=== PATIENT | male | born 1975 | race Caucasian/White ===

== ENCOUNTER 2017-05-23 15:01 | Emergency (ER) | payer MEDICAID ==
[~2017-05-23] VITALS: Ht 162.6 cm; Wt 54.4 kg
--- NOTE | 2017-05-23 16:04 | NUR ---
PATIENT ANMBULATED TO BED 3.
[2017-05-23 16:07] VITALS: BP 136/85
[2017-05-23] MEDS ORDERED: cefTRIAXone 1,000 MG in LIDOCAINE 1% ED 2.1 ML IM ONE (16:10)
--- NOTE | 2017-05-23 16:10 | NUR ---
41 YO MALE BIB SELF FOR DOG BITE TO LEFT HAND AND THUMB YESTERDAY. RED AND SWOLLEN NO DRAINAGE. DENIES N/V/D; SKIN IS PINK/WARM/DRY; AAOX4 WITH EVEN AND STEADY GAIT; LUNGS CLEAR BL; HR EVEN AND REGULAR; PT DENIES ANY FEVER, CP, SOB, OR COUGH AT THIS TIME; PATIENT STATES PAIN OF 7/10 AT THIS TIME; VSS; PATIENT POSITIONED FOR COMFORT; HOB ELEVATED; BEDRAILS UP X2; BED DOWN. ER MD MADE AWARE OF PT STATUS.
[2017-05-23 16:49] VITALS: BP 120/74
== END 2017-05-23 16:49 | disposition home or self-care (01) ==
LOC: MED 15:01
DX: S61.432A Puncture wound without foreign body of left hand, initial encounter (principal); W54.0XXA Bitten by dog, initial encounter; Y93.89 Activity, other specified; Y92.89 Other specified places as the place of occurrence of the external cause; Y99.8 Other external cause status
CPT/HCPCS: 73130; 90471; 90715; 96372; 99284; J0696; J2001; Q0092